=== PATIENT | female | born 1960 | race Caucasian/White ===

== ENCOUNTER → 2016-06-18 | Outpatient (CLI) | payer OTHER | END | disposition home or self-care (01) | LOC: CARD 10:33 | PROVIDERS: ATTEND Family Medicine | DX: R20.2 Paresthesia of skin (principal); G56.01 Carpal tunnel syndrome, right upper limb | CPT/HCPCS: 95885; 95908 ==

== ENCOUNTER 2018-04-14 20:30 | Inpatient (IN) | payer OTHER ==
[~2018-04-14] VITALS: Ht 160 cm; Wt 102.0 kg
[2018-04-14] MEDS ORDERED: SODIUM CHLORIDE FLUSH 10ML SYR IVF ONE (21:00)
--- NOTE | 2018-04-14 21:02 | NUR ---
Pt to radiology, will start IV and draw labs when back.
--- NOTE | 2018-04-14 21:02 | NUR ---
Pt reports bilateral low leg edema x4 months, had an echo done at [facility] today and was called to come to ED for further eval for potential heart failure. Pt on cont cardiac and pulse ox monitoring upon arrival to ED, pt denies any chest pain. States shortness of breath, "but that has been since the feet have started swelling, nothing new today"
[2018-04-14 21:30] LABS: BASOPHILS # (AUTO) 0.04 x10^3/uL (0-0.1); BASOPHILS % (AUTO) 0 % (0-1); EOSINOPHILS # (AUTO) 0.18 x10^3/uL (0-0.4); EOSINOPHILS % (AUTO) 2 % (1-7); LYMPHOCYTES # (AUTO) 1.54 x10^3/uL (1-3.4); LYMPHOCYTES % (AUTO) 16 % (22-44); MD NO; MEAN CORPUSCULAR HEMOGLOBIN 32.6 pg (27.0-34.8); MEAN CORPUSCULAR HGB CONC 33.9 g/dL (32.4-35.8); MEAN CORPUSCULAR VOLUME 96.2 fL (80-100); MEAN PLATELET VOLUME 8.9 fL (7.4-10.4); MONOCYTES # (AUTO) 0.67 x10^3/uL (0.2-0.8); MONOCYTES % (AUTO) 7 % (2-9); NEUTROPHILS # (AUTO) 7.25 x10^3/uL (1.8-6.8); NEUTROPHILS % (AUTO) 75 % (42-75); PLATELET COUNT 311 x10^3/uL (130-400); RED BLOOD COUNT 4.61 x10^6/uL (3.82-5.3); RED CELL DISTRIBUTION WIDTH 14.5 % (9.6-15.2)
[2018-04-14 21:39] LABS: INTERNATIONAL NORMALIZED RATIO 1.02 (0.93-1.1); PROTHROMBIN TIME 10.8 Seconds (9.6-11.5)
[2018-04-14 21:40] LABS: ALANINE AMINOTRANSFERASE 36 U/L (12-78); ALBUMIN 3.1 g/dL (3.4-5.0); ANION GAP 5 mmol/L (5-15); CHLORIDE 110 mmol/L (98-107); CREATININE 0.67 mg/dL (0.55-1.02)
[2018-04-14 21:44] LABS: ALKALINE PHOSPHATASE 146 U/L (45-117); BILIRUBIN,TOTAL 0.3 mg/dL (0.2-1.0); TROPONIN I < 0.015 ng/mL (0.000-0.045)
[2018-04-14] MEDS ORDERED: SODIUM CHLORIDE FLUSH 10ML SYR IVF PRN (22:00)
--- NOTE | 2018-04-14 22:16 | NUR ---
Admitting MD at bedside.
[2018-04-14] MEDS ORDERED: ENALAPRILAT 1.25 MG/ML, 2ML IVPush PRN (22:30)
[2018-04-14] MEDS ORDERED: DOCUSATE 100 MG CAPSULE PO PRN (22:30)
[2018-04-14] MEDS ORDERED: ACETAMINOPHEN 325 MG TABLET PO PRN (22:30)
[2018-04-14] MEDS ORDERED: ONDANSETRON ODT 4 MG PO PRN (22:30)
--- NOTE | 2018-04-14 22:39 | NUR ---
Report to floor RN, pt ready for transport.
[2018-04-14 22:58] VITALS: BP 140/90
[2018-04-14] MEDS: HEPARIN 5,000 UNITS/ML, 1ML SQ SCH (23:18)
[2018-04-15 00:33] VITALS: BP 125/84
[2018-04-15] MEDS: HEPARIN 5,000 UNITS/ML, 1ML SQ SCH ×2 (05:45→14:30)
[2018-04-15 07:10] VITALS: BP 133/87
[2018-04-15 12:38] VITALS: BP 142/83
== END 2018-04-15 15:15 | disposition left against medical advice (07) | DRG 315 ==
LOC: ED 21:51 → EDIP 21:59 → 5SO 22:51
PROVIDERS: ADMIT Family Medicine; ATTEND Family Medicine
DX: I27.0 Primary pulmonary hypertension (principal); E44.1 Mild protein-calorie malnutrition; E66.9 Obesity, unspecified; F41.9 Anxiety disorder, unspecified; Z82.49 Family history of ischemic heart disease and other diseases of the circulatory system; Z88.5 Allergy status to narcotic agent; Z68.39 Body mass index [BMI] 39.0-39.9, adult
CPT/HCPCS: 36415; 71046; 80053; 83880; 84484; 85025; 85610; 85730; 93005; 99285; G0378

== ENCOUNTER 2018-05-31 10:15 | Day surgery (SDC) | payer OTHER, MEDICAID ==
[~2018-05-31] VITALS: Ht 160 cm; Wt 100.0 kg
[~2018-05-31 10:15] MED LIST: NONE PER PT
[2018-05-31] MEDS ORDERED: DIPHENHYDRAMINE 50 MG/ML, 1ML ONE (11:06)
[2018-05-31] MEDS ORDERED: MIDAZOLAM 1 MG/ML, 2ML ONE (11:55)
[2018-05-31] MEDS ORDERED: FENTANYL PF 100 MCG/2ML ONE (11:55)
[2018-05-31] MEDS ORDERED: HEPARIN 1,000 UNITS/ML, 10ML ONE (11:55)
[2018-05-31] MEDS ORDERED: LIDOCAINE 2%, 20ML ONE (11:55)
[2018-05-31] MEDS ORDERED: VERAPAMIL 2.5 MG/ML, 2ML ONE (12:09)
[2018-05-31] MEDS ORDERED: SODIUM CHLORIDE 0.9% IV PRN (13:00)
[2018-05-31] MEDS ORDERED: ADENOSINE IV PRN (13:00)
[2018-05-31] MEDS ORDERED: SODIUM CHLORIDE 0.9% 1,000 ML IV SCH (13:33)
== END 2018-05-31 16:03 | disposition home or self-care (01) ==
LOC: CACL 10:15
PROVIDERS: ATTEND Internal Medicine Cardiovascular Disease
DX: I27.20 Pulmonary hypertension, unspecified (principal); I10 Essential (primary) hypertension
CPT/HCPCS: 93460; 93463; 99156; 99157; C1769; C1894; J0153; J1644; J2250; J3010; J3490; Q9967

== ENCOUNTER 2019-03-15 00:45 | Emergency (ER) | payer OTHER, MEDICAID ==
[~2019-03-15] VITALS: Ht 160 cm; Wt 99.0 kg
--- NOTE | 2019-03-15 01:10 | NUR ---
Pt alert and sitting up on gurney. Pt reports being seen by [facility] on Tuesday but left after intital tx because they don't have ENT bulk station agent. Pt reports sore throat has worsened since. Pt noted to sound congested. Back of throat is red and swollen. Pt lungs clear. No airway compromise noted. Pt in gown. Pt placed on pulse ox/HR monitor. Call light within reach.
--- NOTE | 2019-03-15 01:43 | NUR ---
PIV placed and blood drawn.
[2019-03-15 01:52] LABS: BASOPHILS # (AUTO) 0.04 x10^3/uL (0-0.1); BASOPHILS % (AUTO) 0 % (0-1); EOSINOPHILS # (AUTO) 0.08 x10^3/uL (0-0.4); EOSINOPHILS % (AUTO) 1 % (1-7); LYMPHOCYTES # (AUTO) 1.88 x10^3/uL (1-3.4); LYMPHOCYTES % (AUTO) 14 % (22-44); MD NO; MEAN CORPUSCULAR HEMOGLOBIN 31.7 pg (27.0-34.8); MEAN CORPUSCULAR HGB CONC 33.3 g/dL (32.4-35.8); MEAN CORPUSCULAR VOLUME 95.2 fL (80-100); MEAN PLATELET VOLUME 8.5 fL (7.4-10.4); MONOCYTES % (AUTO) 7 % (2-9); NEUTROPHILS # (AUTO) 10.15 x10^3/uL (1.8-6.8); NEUTROPHILS % (AUTO) 78 % (42-75); PLATELET COUNT 342 x10^3/uL (130-400); RED BLOOD COUNT 4.82 x10^6/uL (3.82-5.3); RED CELL DISTRIBUTION WIDTH 13.5 % (9.6-15.2)
[2019-03-15 01:59] LABS: ANION GAP 8 mmol/L (5-15); CALCIUM 8.7 mg/dL (8.5-10.1); CHLORIDE 106 mmol/L (98-107); CREATININE 0.64 mg/dL (0.55-1.02)
--- NOTE | 2019-03-15 02:23 | NUR ---
Pt alert and watching TV. Pt to CT.
[2019-03-15] MEDS ORDERED: OMNIPAQUE 350 MG/ML, 100ML BOTTLE ONE (02:32)
--- NOTE | 2019-03-15 02:33 | NUR ---
Pt returned from CT
[2019-03-15] MEDS ORDERED: DEXAMETHASONE 4 MG/ML, 5ML ONE (02:55)
[2019-03-15] MEDS ORDERED: AMPICILLIN/SULBACTAM 3 GM in SODIUM CHLORIDE 0.9% 100 ML IV ONE (03:00)
[2019-03-15] MEDS ORDERED: DEXAMETHASONE 4 MG/ML, 1ML IVPush ONE (03:00)
--- NOTE | 2019-03-15 03:23 | NUR ---
Pt medicated per APR. Pt remains on pulse ox/HR monitor. Pt aware of POC and VU. Lights dimmed for comfort.
[2019-03-15] MEDS ORDERED: LIDOCAINE 1%, 10ML INFIL ONE (04:00)
[2019-03-15] MEDS ORDERED: ONDANSETRON 2MG/ML, 2ML IVPush ONE (04:00)
[2019-03-15] MEDS ORDERED: SODIUM CHLORIDE 0.9% 1,000ML IVBOLUS ONE (04:00)
[2019-03-15] MEDS ORDERED: HYDROmorphone 1 MG/ML, 1ML INJ IV ONE (04:00)
[2019-03-15] MEDS ORDERED: BENZOCAINE AEROSOL SPRAY 20%, 60ML TP ONE (04:00)
[2019-03-15] MEDS ORDERED: LIDOCAINE-MPF 1%, 5ML ONE (04:08)
[2019-03-15] MEDS ORDERED: BENZOCAINE AEROSOL SPRAY 20%, 60ML ONE (04:08)
[2019-03-15] MEDS ORDERED: ONDANSETRON 2MG/ML, 2ML ONE ×2 (04:09)
[2019-03-15] MEDS ORDERED: HYDROmorphone 1 MG/ML, 1ML INJ ONE (04:10)
--- NOTE | 2019-03-15 04:26 | NUR ---
Pt alert and resting on gurney. Pt premedicated per APR. Suction ready at bedside.
--- NOTE | 2019-03-15 04:44 | NUR ---
I/D performed by . Lidocain and hurricane spray administered by . Pt alert and sitting up on gurney. During procedure, MD noticed hive like rash to back. Pt denies itching, SOB or known allergies. Pt remains on pulse ox/HR Monitor. Call light within reach.
--- NOTE | 2019-03-15 05:02 | NUR ---
1ST CONTACT C PT. RESTING ON CART IN NAD. RR EVEN NON LABORED. STATES SORENESS TO THROAT INCREASING. AT BS. WILL CTM.
--- NOTE | 2019-03-15 05:04 | NUR ---
Report given to JHONATAN Jim [facility] NAD. Call light within reach.
[2019-03-15 05:23] VITALS: BP 164/85
== END 2019-03-15 05:26 | disposition home or self-care (01) ==
LOC: ED 05:03
DX: J36 Peritonsillar abscess (principal); I10 Essential (primary) hypertension
CPT/HCPCS: 36415; 42700; 70491; 80048; 85025; 86308; 87070; 87081; 87205; 87880; 96365; 96375; 99284; J0295; J1100; J1170; J2405; J3490; J7030; Q9967

== ENCOUNTER 2020-01-08 08:02 | Emergency (ER) | payer OTHER, MEDICAID ==
[~2020-01-08] VITALS: Ht 160 cm; Wt 102.9 kg
[2020-01-08] MEDS ORDERED: DEXAMETHASONE 4 MG TABLET PO ONE (08:30)
[2020-01-08] MEDS ORDERED: DEXAMETHASONE 4 MG TABLET ONE (08:44)
[2020-01-08] MEDS ORDERED: ACETAMINOPHEN 325 MG TABLET ONE (08:44)
[2020-01-08] MEDS ORDERED: ACETAMINOPHEN 325 MG TABLET PO ONE (09:30)
[2020-01-08 10:24] VITALS: BP 154/91
== END 2020-01-08 10:26 | disposition home or self-care (01) ==
LOC: ED 09:35
DX: J02.9 Acute pharyngitis, unspecified (principal); I10 Essential (primary) hypertension
CPT/HCPCS: 87081; 87147; 87880; 99283

== ENCOUNTER → 2020-06-26 | Outpatient (CLI) | payer OTHER, MEDICAID | END | disposition home or self-care (01) | LOC: RAD 11:23 | PROVIDERS: ATTEND Internal Medicine | DX: I27.20 Pulmonary hypertension, unspecified (principal); M47.814 Spondylosis without myelopathy or radiculopathy, thoracic region | CPT/HCPCS: 71046; 78582; A9540; A9558 ==

== ENCOUNTER → 2020-07-25 | Outpatient (CLI) | payer OTHER, MEDICAID ==
[~2020-07-25] MED LIST changes: +OMNIPAQUE 350 MG/ML, 75ML BOTTLE ONE
== END | disposition home or self-care (01) ==
LOC: RAD 15:43
PROVIDERS: ATTEND Internal Medicine
DX: I26.99 Other pulmonary embolism without acute cor pulmonale (principal)
CPT/HCPCS: 71275; Q9967

== ENCOUNTER → 2020-08-05 | Outpatient (CLI) | payer OTHER, MEDICAID ==
[~2020-08-05] MED LIST changes: -OMNIPAQUE 350 MG/ML, 75ML BOTTLE ONE
== END | disposition home or self-care (01) ==
LOC: CVU 14:40
PROVIDERS: ATTEND Internal Medicine
DX: I08.8 Other rheumatic multiple valve diseases (principal); I27.20 Pulmonary hypertension, unspecified
CPT/HCPCS: 93306

== ENCOUNTER 2020-10-09 09:59 | Inpatient (IN) | payer MEDICAID, OTHER ==
[~2020-10-09] VITALS: Ht 160 cm; Wt 103.0 kg
[2020-10-09] MEDS ORDERED: SODIUM CHLORIDE FLUSH 10ML SYR IVF ONE (10:30)
[2020-10-09] MEDS ORDERED: methylPREDNISolone SOD SUCC 125 MG/2 ML IV ONE (10:30)
[2020-10-09] MEDS ORDERED: ALBUTEROL/IPRATROPIUM 2.5MG/0.5MG, 3 ML ONE ×2 (10:31→14:41)
[2020-10-09] MEDS ORDERED: methylPREDNISolone SOD SUCC 125 MG/2 ML ONE (10:31)
[2020-10-09] MEDS: ALBUTEROL/IPRATROPIUM 2.5MG/0.5MG, 3 ML NPPB PRN ×2 (10:44→15:12)
--- NOTE | 2020-10-09 10:47 | NUR ---
PT TO ROOM 21 W/ C/O SOB AND WHEEZING X 2 DAYS WORSENED TODAY. PT C/O FEELING OF DOOM WHEN UNABLE TO BREATHE. PT HAS HX PULM HTN AND WENT TO [facility] THIS AM AND CAME TO ED. PT HAS NOT HAD COVID VACCINE. PT NOTED TO BE BREATHING RAPIDLY W/ WHEEZING NOTED. PLACED ON O2 WHEN MOVED TO ROOM FROM TRIAGE. PIV INITIATED AND MEDICATED PER APR. BREATHING TX INITIATED.
[2020-10-09 11:04] LABS: BASOPHILS % (AUTO) 1 % (0-1); EOSINOPHILS % (AUTO) 7 % (1-7); LYMPHOCYTES % (AUTO) 18 % (22-44); MEAN CORPUSCULAR HEMOGLOBIN 31.8 pg (27.0-34.8); MEAN CORPUSCULAR HGB CONC 33.8 g/dL (32.4-35.8); MEAN PLATELET VOLUME 8.6 fL (7.4-10.4); MONOCYTES % (AUTO) 6 % (2-9); NEUTROPHILS % (AUTO) 68 % (42-75); PLATELET COUNT 339 x10^3/uL (130-400); RED BLOOD COUNT 4.94 x10^6/uL (3.82-5.3); RED CELL DISTRIBUTION WIDTH 13.3 % (9.6-15.2)
[2020-10-09 11:13] LABS: ALANINE AMINOTRANSFERASE 36 U/L (12-78); ALBUMIN 3.5 g/dL (3.4-5.0); ANION GAP 7 mmol/L (5-15); CALCIUM 8.8 mg/dL (8.5-10.1); CHLORIDE 108 mmol/L (98-107)
[2020-10-09 11:17] LABS: ALKALINE PHOSPHATASE 153 U/L (45-117); BILIRUBIN,TOTAL 0.4 mg/dL (0.2-1.0); TROPONIN I < 0.015 ng/mL (0.000-0.045)
--- NOTE | 2020-10-09 11:25 | NUR ---
PT CHART REVIEWED AND PLACED FOR RECHECK.
--- NOTE | 2020-10-09 11:58 | NUR ---
PT STATES MUCH IMPROVEMENT AFTER BREATHING TX.
[2020-10-09] MEDS ORDERED: SODIUM CHLORIDE FLUSH 10ML SYR IVF PRN (12:30)
--- NOTE | 2020-10-09 13:00 | NUR ---
Break RN note: Pt resting on gurney sitting up, NADN, denies needs.
--- NOTE | 2020-10-09 13:58 | NUR ---
PT RESTING ON GURNEY. NADN. KAUR.
[2020-10-09] MEDS: methylPREDNISolone SOD SUCC 125 MG/2 ML IVPush SCH ×2 (14:40→21:05)
[2020-10-09] MEDS ORDERED: FUROSEMIDE 20 MG/2 ML ONE (14:41)
[2020-10-09] MEDS ORDERED: POLYETHYLENE GLYCOL 17 GM PACKET PO PRN (15:00)
[2020-10-09] MEDS ORDERED: LABETALOL 5MG/ML, 20ML IVPush PRN (15:00)
[2020-10-09] MEDS ORDERED: ONDANSETRON 2MG/ML, 2ML IVPush PRN (15:00)
[2020-10-09] MEDS ORDERED: ENALAPRILAT 1.25 MG/ML, 2ML IVPush PRN (15:00)
[2020-10-09] MEDS ORDERED: FUROSEMIDE 20 MG/2 ML IV SCH (15:00)
[2020-10-09 15:18] LABS: TROPONIN I < 0.015 ng/mL (0.000-0.045)
--- NOTE | 2020-10-09 16:17 | NUR ---
PT RESTING ON GURNEY. STATES IMPROVEMENT AFTER SECOND BREATHING TX. PT EDUCATED ON LAB RESULT NEGATIVE FOR COVID-19. ALL QUESTIONS ANSWERED. HR TACHY AFTER BREATHING TX.
[2020-10-09] MEDS ORDERED: ALBUTEROL SULFATE 2.5 MG/3 ML NPPB PRN (16:30)
[2020-10-09 16:50] VITALS: BP 135/82
[2020-10-09] MEDS: ENOXAPARIN 40 MG/0.4 ML SQ SCH (17:08)
[2020-10-09 20:36] VITALS: BP 121/84
[2020-10-09] MEDS: FUROSEMIDE 20 MG/2 ML IV SCH (21:00)
[2020-10-09] MEDS: ACETAMINOPHEN 325 MG TABLET PO PRN (21:04)
[2020-10-09 21:14] LABS: TROPONIN I < 0.015 ng/mL (0.000-0.045)
[2020-10-10 01:50] VITALS: BP 121/77
[2020-10-10] MEDS: methylPREDNISolone SOD SUCC 125 MG/2 ML IVPush SCH ×4 (02:24→20:09)
[2020-10-10] MEDS: ACETAMINOPHEN 325 MG TABLET PO PRN ×2 (04:35→12:39)
[2020-10-10 05:15] LABS: BASOPHILS % (AUTO) 0 % (0-1); EOSINOPHILS % (AUTO) 0 % (1-7); LYMPHOCYTES % (AUTO) 7 % (22-44); MEAN CORPUSCULAR HEMOGLOBIN 31.6 pg (27.0-34.8); MEAN CORPUSCULAR HGB CONC 33.7 g/dL (32.4-35.8); MEAN PLATELET VOLUME 9.1 fL (7.4-10.4); MONOCYTES % (AUTO) 1 % (2-9); NEUTROPHILS % (AUTO) 93 % (42-75); PLATELET COUNT 361 x10^3/uL (130-400); RED BLOOD COUNT 4.96 x10^6/uL (3.82-5.3); RED CELL DISTRIBUTION WIDTH 13.1 % (9.6-15.2)
[2020-10-10 05:22] LABS: ALBUMIN 3.3 g/dL (3.4-5.0); CHLORIDE 103 mmol/L (98-107)
[2020-10-10 05:35] LABS: CALCIUM 9.2 mg/dL (8.5-10.1)
[2020-10-10 05:36] LABS: ALANINE AMINOTRANSFERASE 36 U/L (12-78); ALKALINE PHOSPHATASE 149 U/L (45-117); BILIRUBIN,TOTAL 0.4 mg/dL (0.2-1.0); CHOLESTEROL, TOTAL 203 mg/dL (140-239); HDL CHOL % 25 % (28-40); HDL CHOLESTEROL (DIRECT) 51 mg/dL (40-60); LDL CHOLESTEROL,CALCULATED 138 mg/dL (54-169); LDL/HDL RATIO 2.7 (0.5-3.0); TRIGLYCERIDES 72 mg/dL (50-200); VLDL CHOLESTEROL 14 mg/dL (0-25)
[2020-10-10 06:46] LABS: ANION GAP 9 mmol/L (5-15)
[2020-10-10] MEDS: FUROSEMIDE 20 MG/2 ML IV SCH ×2 (08:37→20:09)
[2020-10-10] MEDS: BENZONATATE 100 MG CAPSULE PO SCH ×3 (08:37→20:09)
[2020-10-10 09:07] VITALS: BP 128/84
[2020-10-10 12:32] VITALS: BP 131/84
[2020-10-10] MEDS: ENOXAPARIN 40 MG/0.4 ML SQ SCH (13:54)
[2020-10-10 19:55] VITALS: BP 144/87
[2020-10-11 01:23] VITALS: BP 138/87
[2020-10-11] MEDS: methylPREDNISolone SOD SUCC 125 MG/2 ML IVPush SCH (02:31)
[2020-10-11] MEDS: ACETAMINOPHEN 325 MG TABLET PO PRN (02:36)
[2020-10-11 04:02] LABS: MEAN CORPUSCULAR HEMOGLOBIN 31.8 pg (27.0-34.8); MEAN CORPUSCULAR HGB CONC 33.8 g/dL (32.4-35.8); MEAN PLATELET VOLUME 8.7 fL (7.4-10.4); PLATELET COUNT 386 x10^3/uL (130-400); RED BLOOD COUNT 5.13 x10^6/uL (3.82-5.3); RED CELL DISTRIBUTION WIDTH 13.2 % (9.6-15.2)
[2020-10-11 04:09] LABS: ANION GAP 4 mmol/L (5-15); CHLORIDE 104 mmol/L (98-107)
[2020-10-11 04:10] LABS: CREATININE 0.61 mg/dL (0.55-1.02)
[2020-10-11 04:47] LABS: BAND#(MANUAL) 0.22 x10^3/uL; BANDS%(MANUAL) 1 % (0-7); LYMPH#(MANUAL) 1.55 x10^3/uL (1-3.4); LYMPHS% (MANUAL) 7 % (22-44); MONOS#(MANUAL) 0.22 x10^3/uL (0.3-2.7); MONOS% (MANUAL) 1 % (2-9); SEG#(MANUAL) 20.11 x10^3/uL (1.8-6.8); SEGS% (MANUAL) 91 % (42-75)
[2020-10-11 04:48] LABS: <PLATELET ESTIMATE> ADEQUATE; <PLT MORPHOLOGY> NORMAL PLT MORPH; <RBC MORPHOLOGY> NORMAL; PMNS WITH VACUOLES 1+
[2020-10-11 08:34] VITALS: BP 134/83
== END 2020-10-11 09:10 | disposition left against medical advice (07) | DRG 291 ==
LOC: ED 10:32 → SUATTDRO 12:15 → EDIP 12:16 → 4WST 16:21
PROVIDERS: ADMIT Internal Medicine; ATTEND Internal Medicine
DX: I11.0 Hypertensive heart disease with heart failure (principal); J96.01 Acute respiratory failure with hypoxia; R65.10 Systemic inflammatory response syndrome (SIRS) of non-infectious origin without acute organ dysfunction; I27.20 Pulmonary hypertension, unspecified; I50.33 Acute on chronic diastolic (congestive) heart failure; R00.0 Tachycardia, unspecified; Z20.822 Contact with and (suspected) exposure to COVID-19; Z88.5 Allergy status to narcotic agent
CPT/HCPCS: 36415; 71045; 80048; 80053; 80061; 83880; 84443; 84484; 85025; 93005; 96374; 96375; G0378; J1650; U0005; J1940; J2930; U0003